=== PATIENT | male | born 1960 | race American Indian/Alaskan Native ===

== ENCOUNTER 2021-09-28 16:39 | Observation (INO) | payer BC ==
--- NOTE | 2021-09-28 16:51 | Consultation ---
History of Present Illness - Reason for Consult Consult date: 09/28/21 - History of Present Illness [facility] Consult Note # Demographics Consult Type: Acute Stroke Level 1 (0-4.5 hrs) Patient Location: Emergency Room First Name: darion Last Name: modesto Date of : 1960 Age: 61 Gender: Male Facility: Time of Initial Page (Eastern Time): 09/28/2021, 16:41 Time of Return Call (Eastern Time): 09/28/2021, 16:42 # HPI History: 61yo man who presents with confusion and was diaphoretic. Bystanders found him with LOC and unresponsive by his truck. He is improved, and has hypertension. he is asking the same repetitive questions . Last Known Normal: 1530 EST Associated Symptoms: confusion no headache # Scores Time of exam and NIHSS ( Time): 09/28/2021, 16:45 Level of Consciousness 1a: [0] = Alert; keenly responsive LOC Questions 1b: [1] = Answers one correctly LOC Commands 1c: [0] = Performs both tasks correctly Best Gaze 2: [0] = Normal Visual 3: [0] = No visual loss Facial Palsy 4: [0] = Normal symmetrical movements Motor Arm Left 5a: [0] = No drift Motor Arm Right 5b: [0] = No drift Motor Leg Left 6a: [0] = No drift Motor Leg Right 6b: [0] = No drift Limb Ataxia 7: [0] = Absent Sensory 8: [0] = Normal Best Language 9: [0] = No aphasia Dysarthria 10: [0] = Normal Extinction and Inattention 11: [0] = No abnormality NIHSS Total: 1 # Exam Vitals: vital signs reviewed SBP: 210 DBP: 110 Mental Status: recall 0/3 after 2 minutes # PMH-FH-SH Past Medical History: hypertension # Data Glucose: 62 # Assessment Impression: Altered Mental Status possibly 2/2 HTN vs transient global amnesia # Plan Thrombolytic/Intervention: NOT IV Thrombolysis or IA Intervention candidate Thrombolytic Exclusion (< 3 hour window): time of onset unclear Thrombolytic Exclusion: other (see below) likely not stroke Intraarterial Exclusion: clinically not consistent with stroke Target Blood Pressure: SBP < 180 SBP > 120 Imaging: (urgency: STAT): CT Angiogram Head and CT Angiogram Neck Imaging: (urgency: routine): MRI Brain without contrast Other: telemetry monitoring would not pursue stroke work-up if MRI is negative I have discussed my recommendations with the referring provider Medications and Allergies Allergies Allergy/AdvReac Type Severity Reaction Status Date / Time iodine Allergy Hives Verified 07/24/13 01:28 shellfish derived Allergy Hives Verified 07/24/13 01:28 Home Medications Medication Instructions Recorded Confirmed Last Taken Type Fluticasone/Qdsnzcwguo92/21Mcg 07/24/13 07/24/13 Unknown History [Advair HFA 45/21 mcg] lisinopriL [Zestril TAB] 10 mg PO QDAY #30 tablet 07/24/13 Unknown Rx EPINEPHrine [Epipen 2-Rafael] 0.3 mg IJ PRN PRN #1 ml 02/24/14 Unknown Rx predniSONE 10 mg PO QDAY #38 tab 02/24/14 Unknown Rx traMADoL [Ultram 50 MG tab] 50 mg PO Q4HR PRN #14 tablet 02/27/15 Unknown Rx
--- NOTE | 2021-09-28 17:00 | Emergency Department Report ---
ED Neuro Deficit HPI - General Chief Complaint: Neuro Symptoms/Deficit Stated Complaint: STROKE Time Seen by Provider: 09/28/21 16:48 Source: patient, EMS Mode of arrival: Stretcher Limitations: No Limitations - History of Present Illness Initial Comments: Patient is 61 years old male with history of hypertension and diabetes. Patient brought to the emergency room via EMS from a local [employer] parking lot after patient was found unresponsive. Patient found to have a blood pressure of 210/120. Patient is confused initially but he came around. Upon arrival to the ER patient is alert, oriented x3 in no acute distress. Stroke protocol initiated and patient moved to CT for stat CT brain without contrast. Telemetry neurologist immediately consulted and patient examined by Dr. Guthrie. - Related Data Home Medications: Home Medications Medication Instructions Recorded Confirmed Last Taken Fluticasone/Vkzpfoltzi75/21Mcg 1 inhalation PO QDAY 07/24/13 09/29/21 Unknown [Advair HFA 45/21 mcg] Previous Rx's Medication Instructions Recorded Last Taken Type EPINEPHrine [Epipen 2-Rafael] 0.3 mg IJ PRN PRN #1 ml 02/24/14 Unknown Rx traMADoL [Ultram 50 MG tab] 50 mg PO Q4HR PRN #14 tablet 02/27/15 Unknown Rx Montelukast [Singulair] 10 mg PO QHS #30 tablet 09/30/21 Unknown Rx Prednisone [predniSONE 5 mg (6-Day 5 mg PO .TAPER #1 pack 09/30/21 Unknown Rx Pack, 21 Tabs)] amLODIPine 5 mg PO DAILY #30 tab 09/30/21 Unknown Rx lisinopriL [Zestril TAB] 40 mg PO QDAY #30 tablet 09/30/21 Unknown Rx Allergies/Adverse Reactions: Allergies Allergy/AdvReac Type Severity Reaction Status Date / Time iodine Allergy Hives Verified 07/24/13 01:28 shellfish derived Allergy Hives Verified 07/24/13 01:28 ED Review of Systems ROS: Stated complaint: STROKE Other details as noted in HPI Comment: All other systems reviewed and negative Constitutional: denies: chills, fever Respiratory: denies: cough, shortness of breath, SOB with exertion, SOB at rest Cardiovascular: denies: chest pain, palpitations Gastrointestinal: denies: abdominal pain, nausea, vomiting Musculoskeletal: denies: back pain Neurological: denies: headache, weakness, numbness, paresthesias, confusion ED Past Medical Hx - Past Medical History Hx Hypertension: Yes Hx Kidney Stones: Yes Hx Asthma: Yes - Social History Smoking Status: Never Smoker Substance Use Type: None - Medications Home Medications: Home Medications Medication Instructions Recorded Confirmed Last Taken Type Fluticasone/Uhzdmmmsko45/21Mcg 1 inhalation PO QDAY 07/24/13 09/29/21 Unknown History [Advair HFA 45/21 mcg] EPINEPHrine [Epipen 2-Rafael] 0.3 mg IJ PRN PRN #1 ml 02/24/14 09/29/21 Unknown Rx traMADoL [Ultram 50 MG tab] 50 mg PO Q4HR PRN #14 tablet 02/27/15 09/29/21 Unknown Rx Montelukast [Singulair] 10 mg PO QHS #30 tablet 09/30/21 Unknown Rx Prednisone [predniSONE 5 mg (6-Day 5 mg PO .TAPER #1 pack 09/30/21 Unknown Rx Pack, 21 Tabs)] amLODIPine 5 mg PO DAILY #30 tab 09/30/21 Unknown Rx lisinopriL [Zestril TAB] 40 mg PO QDAY #30 tablet 09/30/21 Unknown Rx ED Neuro Physical Exam - General Limitations: No Limitations General appearance: alert, in no apparent distress Suspected Stroke: Yes - Head Head exam: Present: atraumatic, normocephalic, normal inspection - Eye Eye exam: Present: normal appearance - ENT ENT exam: Present: normal exam, normal orophraynx, mucous membranes moist - Neck Neck exam: Present: normal inspection, full ROM. Absent: tenderness, meningismus - Respiratory Respiratory exam: Present: normal lung sounds bilaterally - Cardiovascular Cardiovascular Exam: Present: regular rate, normal rhythm, normal heart sounds - GI/Abdominal GI/Abdominal exam: Present: soft, normal bowel sounds. Absent: distended, tenderness, guarding, rebound, rigid, organomegaly, mass, bruit, pulsatile mass, hernia - Extremities Exam Extremities exam: Present: normal inspection, full ROM, normal capillary refill. Absent: tenderness - Back Exam Back exam: Present: normal inspection, full ROM. Absent: CVA tenderness (R), CVA tenderness (L) - Neurological Exam Neurological exam: Present: alert, oriented X3, CN II-XII intact. Absent: motor sensory deficit - NIHSS Assessment Interval: Baseline 1a. Level of Consciousness: alert/keenly responsive 1b. LOC Questions: answers both correctly 1c. LOC Commands: performs tasks correctly 2. Best Gaze: normal 3. Visual: no visual loss 4. Facial Palsy: normal symmetrical movement 5b. Motor Arm Right: no drift 5a. Motor Arm Left: no drift 6a. Motor Leg Left: no drift 6b. Motor Leg Right: no drift 7. Limb Ataxia: absent 8. Sensory: normal 9. Best Language: no aphasia 10. Dysarthria: normal 11. Extinction/Inattention: no abnormality Total Score: 0 Stroke Severity: No Stroke Symptoms - Psychiatric Psychiatric exam: Present: normal mood - Skin Skin exam: Present: warm, intact, normal color ED Course Vital Signs 09/28/21 09/28/21 09/28/21 17:08 17:14 17:15 Temperature Pulse Rate 103 H Respiratory 18 Rate Blood Pressure 151/102 159/108 Blood Pressure [Right] O2 Sat by Pulse 99 97 Oximetry 09/28/21 09/28/21 09/28/21 17:17 17:20 18:01 Temperature 98.0 F Pulse Rate 99 H 99 H 89 Respiratory 18 20 Rate Blood Pressure 152/102 Blood Pressure 159/108 [Right] O2 Sat by Pulse 98 99 Oximetry 09/28/21 09/28/21 09/28/21 19:01 20:01 21:01 Temperature Pulse Rate 76 Respiratory 15 Rate Blood Pressure 157/105 151/105 144/96 Blood Pressure [Right] O2 Sat by Pulse 99 98 100 Oximetry 09/28/21 09/28/21 09/28/21 22:01 23:01 23:07 Temperature Pulse Rate 90 Respiratory 13 Rate Blood Pressure 144/100 154/104 154/104 Blood Pressure [Right] O2 Sat by Pulse 99 96 95 Oximetry 09/28/21 09/29/21 23:25 00:00 Temperature Pulse Rate 84 Respiratory Rate Blood Pressure 154/104 137/91 Blood Pressure [Right] O2 Sat by Pulse 95 Oximetry - Lab Data Result diagrams: 09/28/21 17:00 09/29/21 04:26 Lab Results 09/28/21 09/28/21 09/28/21 Range/Units 14:20 17:00 17:00 WBC 5.6 (4.5-11.0) K/mm3 RBC 4.53 (3.65-5.03) M/mm3 Hgb 14.4 (11.8-15.2) gm/dl Hct 41.8 (35.5-45.6) % MCV 92 (84-94) fl MCH 32 (28-32) pg MCHC 35 H (32-34) % RDW 15.2 (13.2-15.2) % Plt Count 279 (140-440) K/mm3 Lymph % (Auto) 38.6 H (13.4-35.0) % [place] % (Auto) 11.8 H (0.0-7.3) % Eos % (Auto) 3.0 (0.0-4.3) % Baso % (Auto) 0.8 (0.0-1.8) % Lymph # (Auto) 2.2 (1.2-5.4) K/mm3 [place] # (Auto) 0.7 (0.0-0.8) K/mm3 Eos # (Auto) 0.2 (0.0-0.4) K/mm3 Baso # (Auto) 0.0 (0.0-0.1) K/mm3 Seg Neutrophils % 45.8 (40.0-70.0) % Seg Neutrophils # 2.6 (1.8-7.7) K/mm3 PT 12.9 (12.2-14.9) Sec. INR 0.88 (0.87-1.13) APTT 23.7 L (24.2-36.6) Sec. Thrombin Time 20.5 H (15.1-19.6) Sec. Sodium (137-145) mmol/L Potassium (3.6-5.0) mmol/L Chloride (98-107) mmol/L Carbon Dioxide (22-30) mmol/L Anion Gap mmol/L BUN (9-20) mg/dL Creatinine (0.8-1.3) mg/dL Estimated GFR ml/min BUN/Creatinine Ratio % Glucose (75-100) mg/dL Calcium (8.4-10.2) mg/dL Total Creatine Kinase (55-170) units/L CK-MB (CK-2) (0.0-4.0) ng/mL CK-MB (CK-2) Rel Index (0-4) Troponin T (0.00-0.029) ng/mL Urine Opiates Screen Negative Urine Methadone Screen Negative Ur Barbiturates Screen Negative Ur Phencyclidine Scrn Negative Ur Amphetamines Screen Negative U Benzodiazepines Scrn Negative Urine Cocaine Screen Negative U Marijuana (THC) Screen Positive Drugs of Abuse Note Disclamer 09/28/21 Range/Units 17:00 WBC (4.5-11.0) K/mm3 RBC (3.65-5.03) M/mm3 Hgb (11.8-15.2) gm/dl Hct (35.5-45.6) % MCV (84-94) fl MCH (28-32) pg MCHC (32-34) % RDW (13.2-15.2) % Plt Count (140-440) K/mm3 Lymph % (Auto) (13.4-35.0) % [place] % (Auto) (0.0-7.3) % Eos % (Auto) (0.0-4.3) % Baso % (Auto) (0.0-1.8) % Lymph # (Auto) (1.2-5.4) K/mm3 [place] # (Auto) (0.0-0.8) K/mm3 Eos # (Auto) (0.0-0.4) K/mm3 Baso # (Auto) (0.0-0.1) K/mm3 Seg Neutrophils % (40.0-70.0) % Seg Neutrophils # (1.8-7.7) K/mm3 PT (12.2-14.9) Sec. INR (0.87-1.13) APTT (24.2-36.6) Sec. Thrombin Time (15.1-19.6) Sec. Sodium 140 (137-145) mmol/L Potassium 3.5 L (3.6-5.0) mmol/L Chloride 103.1 (98-107) mmol/L Carbon Dioxide 20 L (22-30) mmol/L Anion Gap 20 mmol/L BUN 23 H (9-20) mg/dL Creatinine 1.1 (0.8-1.3) mg/dL Estimated GFR > 60 ml/min BUN/Creatinine Ratio 21 % Glucose 107 H (75-100) mg/dL Calcium 9.0 (8.4-10.2) mg/dL Total Creatine Kinase 453 H (55-170) units/L CK-MB (CK-2) 6.2 H (0.0-4.0) ng/mL CK-MB (CK-2) Rel Index 1.3 (0-4) Troponin T < 0.010 (0.00-0.029) ng/mL Urine Opiates Screen Urine Methadone Screen Ur Barbiturates Screen Ur Phencyclidine Scrn Ur Amphetamines Screen U Benzodiazepines Scrn Urine Cocaine Screen U Marijuana (THC) Screen Drugs of Abuse Note - EKG Data -: EKG Interpreted by Me EKG shows normal: sinus rhythm Rate: normal Interpretation: no acute changes - Radiology Data Radiology results: report reviewed - Medical Decision Making Patient is 61 years old male with history of hypertension and diabetes. Patient brought to the emergency room via EMS from a local [employer] parking lot after patient was found unresponsive. Patient found to have a blood pressure of 210/120. Patient is confused initially but he came around. Upon arrival to the ER patient is alert, oriented x3 in no acute distress. Stroke protocol initiated and patient moved to CT for stat CT brain without contrast. Telemetry neurologist immediately consulted and patient examined by Dr. Guthrie. CT brain is negative for acute finding. Labs reviewed and is unremarkable. CTA neck and brain has not been done because patient has severe allergy to iodine contrast. Patient remained stable in the ER. He is currently alert, oriented x3 in no acute distress. I discussed the patient with Dr. Rosario, he agreed to admit the patient to medical service for further management. Critical Care Time: Yes Critical care time in (mins) excluding proc time.: 35 Critical care attestation.: If time is entered above; I have spent that time in minutes in the direct care of this critically ill patient, excluding procedure time. ED Disposition Clinical Impression: TIA (transient ischemic attack), Hypertensive encephalopathy Disposition: ADMITTED INPATIENT Is pt being admited?: Yes Condition: Stable
[2021-09-28 17:09] LABS: Basophils % (Auto) 0.8 % (0.0-1.8); Eosinophils # (Auto) 0.2 K/mm3 (0.0-0.4); Hematocrit 41.8 % (35.5-45.6); Hemoglobin 14.4 gm/dl (11.8-15.2); Lymphocytes # (Auto) 2.2 K/mm3 (1.2-5.4); Lymphocytes % (Auto) 38.6 % (13.4-35.0); Mean Corpuscular HGB Conc 35 % (32-34); Mean Corpuscular Volume 92 fl (84-94); Monocytes # (Auto) 0.7 K/mm3 (0.0-0.8); Monocytes % (Auto) 11.8 % (0.0-7.3); Platelet Count 279 K/mm3 (140-440); Red Blood Count 4.53 M/mm3 (3.65-5.03); Red Cell Distribution Width 15.2 % (13.2-15.2)
--- NOTE | 2021-09-28 17:10 | Cat Scan Report ---
CT head/brain wo con INDICATION: CODE STROKE CALL [phone] Stroke symptoms. TECHNIQUE: Routine CT head. All CT scans at this location are performed using CT dose reduction for A MARYLU by means of automated exposure control. COMPARISON: None. FINDINGS: Intracranial: [place]-white matter differentiation is maintained. No intracranial hemorrhage. No extra a xial collection. No hydrocephalus. No herniation. Sinuses: Paranasal sinuses and mastoid air cells are essentially clear. Orbits: Globes are intact. Calvarium: No acute fracture. IMPRESSION: 1. No acute intracranial abnormality. Informed Dr Mora at 4:06 Signer Name: Maxim Brewer MD Signed: 09/28/2021 5:06 PM Workstation Name: [id number]
[2021-09-28 17:23] LABS: INR 0.88 (0.87-1.13)
[2021-09-28 17:24] LABS: Partial Thromboplastin Time 23.7 Sec. (24.2-36.6); Thrombin Time 20.5 Sec. (15.1-19.6)
[2021-09-28 17:27] LABS: Creatine Kinase MB 6.2 ng/mL (0.0-4.0)
[2021-09-28 17:28] LABS: BUN/Creatinine Ratio 21; Blood Urea Nitrogen 23 mg/dL (9-20); Hemolysis Index 6
[2021-09-28] MEDS ORDERED: ONDANSETRON 4 MG/2 ML INJ IV PRN (20:48)
[2021-09-28] MEDS ORDERED: oxyCODONE /ACETAMINOPHEN 5-325MG TAB PO PRN (20:48)
[2021-09-28] MEDS ORDERED: ACETAMINOPHEN 325 MG TAB PO PRN (20:48)
--- NOTE | 2021-09-28 20:55 | History and Physical Report ---
History of Present Illness Date of examination: 09/28/21 Date of admission: 09/28/2021 Chief complaint: Found unresponsive at a local [facility] History of present illness: 61-year-old black male with history of hypertension and diabetes brought in with emergency medical services-EMS from the nearby [facility] parking lot after the patient was found unresponsive. His initial blood pressure was 210/120. Patient was confused initially but became around. Upon arrival in the ER patient is alert and oriented x3 and in no acute distress. Stroke protocol was initiated. Patient is noncompliant. Not taking his medications. Patient also has a history of asthma/COPD. No fever or chills. Vaccination status was not asked during my history taking. - Past Medical History --Hypertension: Yes --Kidney Stones: Yes --Asthma: Yes - Past surgical history --left total knee replacement - Social History --Smoking Status: Never Smoker --Substance Use Type: None - Family history --Htn Review of Systems ROS: Unresponsive at nearby [facility] Constitutional no weight loss or weight gain no fever or chills HEENT no sore throat no post nasal drip no diplopia Neck no neck stiffness no lymph gland enlargement Chest and lungs no shortness of breath cough or wheezing CVS no chest pain no diaphoresis no palpitations GI no nausea no vomiting no diarrhea Genitourinary system no dysuria no flank pain Musculoskeletal system no muscle pains no joint pains [employer] OFF[employer] unresponsive at the nearby [facility] became fully alert while in the emergency room. Skin no rash no itching Psychiatric no depression no homicidal or suicidal tendencies Hematologic no lymphedema or bruising Endocrine no polydipsia no polyuria no cold intolerance no heat intolerance Medications and Allergies Allergies Allergy/AdvReac Type Severity Reaction Status Date / Time iodine Allergy Hives Verified 07/24/13 01:28 shellfish derived Allergy Hives Verified 07/24/13 01:28 Home Medications Medication Instructions Recorded Confirmed Last Taken Type Fluticasone/Izvhrkxrnr42/21Mcg 07/24/13 07/24/13 Unknown History [Advair HFA 45/21 mcg] lisinopriL [Zestril TAB] 10 mg PO QDAY #30 tablet 07/24/13 Unknown Rx EPINEPHrine [Epipen 2-Rafael] 0.3 mg IJ PRN PRN #1 ml 02/24/14 Unknown Rx predniSONE 10 mg PO QDAY #38 tab 02/24/14 Unknown Rx traMADoL [Ultram 50 MG tab] 50 mg PO Q4HR PRN #14 tablet 02/27/15 Unknown Rx Exam - Constitutional Vitals: Temp Pulse Resp BP Pulse Ox 98.0 F 99 H 18 159/108 98 09/28/21 17:17 09/28/21 17:20 09/28/21 17:17 09/28/21 17:17 09/28/21 17:17 General appearance: Present: no acute distress, well-nourished - EENT Eyes: Present: PERRL ENT: hearing intact, clear oral mucosa - Neck Neck: Present: supple, normal ROM - Respiratory Respiratory effort: normal Respiratory: bilateral: CTA - Cardiovascular Heart rate: 78 Rhythm: regular Heart Sounds: Present: S1 & S2. Absent: rub, click - Extremities Extremities: no ischemia, pulses intact, pulses symmetrical, No edema Peripheral Pulses: within normal limits - Abdominal General gastrointestinal: Present: soft, non-tender, non-distended, normal bowel sounds Male genitourinary: Present: normal - Rectal Rectal Exam: deferred - Integumentary Integumentary: Present: clear, warm, dry - Musculoskeletal Musculoskeletal: gait normal, strength equal bilaterally - Psychiatric Psychiatric: appropriate mood/affect, intact judgment & insight - Neurologic Neurologic: CNII-XII intact, moves all extremities - Allied Health Allied health notes reviewed: nursing, case management HEART Score - HEART Score History: Moderately suspicious Risk factors: 1-2 risk factors Troponin: Troponin T < 0.010 ng/mL (0.00-0.029) 09/28/21 17:00 Troponin: < normal limit - Critical Actions Critical Actions: 0-3 pts:0.9-1.7%risk of adverse cardiac event.Candidate for discharge Results - Labs CBC & Chem 7: 09/28/21 17:00 09/28/21 17:00 Labs: Laboratory Last Values WBC 5.6 K/mm3 (4.5-11.0) 09/28/21 17:00 RBC 4.53 M/mm3 (3.65-5.03) 09/28/21 17:00 Hgb 14.4 gm/dl (11.8-15.2) 09/28/21 17:00 Hct 41.8 % (35.5-45.6) 09/28/21 17:00 MCV 92 fl (84-94) 09/28/21 17:00 MCH 32 pg (28-32) 09/28/21 17:00 MCHC 35 % (32-34) H 09/28/21 17:00 RDW 15.2 % (13.2-15.2) 09/28/21 17:00 Plt Count 279 K/mm3 (140-440) 09/28/21 17:00 Lymph % (Auto) 38.6 % (13.4-35.0) H 09/28/21 17:00 [place] % (Auto) 11.8 % (0.0-7.3) H 09/28/21 17:00 Eos % (Auto) 3.0 % (0.0-4.3) 09/28/21 17:00 Baso % (Auto) 0.8 % (0.0-1.8) 09/28/21 17:00 Lymph # (Auto) 2.2 K/mm3 (1.2-5.4) 09/28/21 17:00 [place] # (Auto) 0.7 K/mm3 (0.0-0.8) 09/28/21 17:00 Eos # (Auto) 0.2 K/mm3 (0.0-0.4) 09/28/21 17:00 Baso # (Auto) 0.0 K/mm3 (0.0-0.1) 09/28/21 17:00 Seg Neutrophils % 45.8 % (40.0-70.0) 09/28/21 17:00 Seg Neutrophils # 2.6 K/mm3 (1.8-7.7) 09/28/21 17:00 PT 12.9 Sec. (12.2-14.9) 09/28/21 17:00 INR 0.88 (0.87-1.13) 09/28/21 17:00 APTT 23.7 Sec. (24.2-36.6) L 09/28/21 17:00 Thrombin Time 20.5 Sec. (15.1-19.6) H 09/28/21 17:00 Sodium 140 mmol/L (137-145) 09/28/21 17:00 Potassium 3.5 mmol/L (3.6-5.0) L 09/28/21 17:00 Chloride 103.1 mmol/L (98-107) 09/28/21 17:00 Carbon Dioxide 20 mmol/L (22-30) L 09/28/21 17:00 Anion Gap 20 mmol/L 09/28/21 17:00 BUN 23 mg/dL (9-20) H 09/28/21 17:00 Creatinine 1.1 mg/dL (0.8-1.3) 09/28/21 17:00 Estimated GFR > 60 ml/min 09/28/21 17:00 BUN/Creatinine Ratio 21 % 09/28/21 17:00 Glucose 107 mg/dL (75-100) H 09/28/21 17:00 Calcium 9.0 mg/dL (8.4-10.2) 09/28/21 17:00 Total Creatine Kinase 453 units/L (55-170) H 09/28/21 17:00 CK-MB (CK-2) 6.2 ng/mL (0.0-4.0) H 09/28/21 17:00 CK-MB (CK-2) Rel Index 1.3 (0-4) 09/28/21 17:00 Troponin T < 0.010 ng/mL (0.00-0.029) 09/28/21 17:00 Short CBC 09/28/21 Range/Units 17:00 WBC 5.6 (4.5-11.0) K/mm3 Hgb 14.4 (11.8-15.2) gm/dl Hct 41.8 (35.5-45.6) % Plt Count 279 (140-440) K/mm3 BMP 09/28/21 17:00 Sodium 140 Potassium 3.5 L Chloride 103.1 Carbon Dioxide 20 L BUN 23 H Creatinine 1.1 Glucose 107 H Calcium 9.0 Cardiac Enzymes 09/28/21 Range/Units 17:00 Total Creatine Kinase 453 H (55-170) units/L CK-MB (CK-2) 6.2 H (0.0-4.0) ng/mL Troponin T < 0.010 (0.00-0.029) ng/mL - Imaging and Cardiology EKG: report reviewed (Left-ventricular hypertrophy by voltage criteria, sinus rhythm) Imaging and Cardiology: Head CT No acute intracranial abnormality Assessment and Plan Advance Directives: Yes (Full code) VTE prophylaxis?: Chemical Plan of care discussed with patient/family: Yes - Patient Problems (1) Hypertensive encephalopathy Current Visit: Yes Status: Acute Plan to address problem: Patient initiated on valsartan and Coreg IV hydralazine 10 mg every 3 as needed Compliance was counseled (2) Syncope and collapse Current Visit: Yes Status: Acute Plan to address problem: Syncope work-up Echocardiogram and carotid duplex scan (3) Hypokalemia Current Visit: Yes Status: Acute Plan to address problem: Supplemented (4) T2DM (type 2 diabetes mellitus) Current Visit: Yes Status: Chronic Qualifiers: Diabetes mellitus terminal gauger insulin use: unspecified halfway insulin use status Plan to address problem: By history Accu-Cheks Coverage Check hemoglobin A1c (5) Asthma Current Visit: Yes Status: Inactive Plan to address problem: Albuterol MDI 2 puffs 3 times daily as needed (6) DVT prophylaxis Current Visit: No Status: Acute Plan to address problem: On anticoagulation GI prophylaxis (7) Advance care planning Current Visit: Yes Status: Acute Plan to address problem: Disease education conducted, care plan discussed, diagnosis discussed, prognosis discussed. Patient is full code. Patient acknowledges understanding and agreement with care plan. +30 minutes.
[2021-09-28] MEDS: VALSARTAN 160MG TAB PO SCH (23:25)
[2021-09-28] MEDS: HEPARIN 5,000 UNIT/1 ML VIAL SUB-Q SCH (23:26)
[2021-09-29 05:29] LABS: Alanine Aminotransferase 33 units/L (7-56); BUN/Creatinine Ratio 16; Blood Urea Nitrogen 16 mg/dL (9-20); Calcium 8.8 mg/dL (8.4-10.2); Hemolysis Index 2
[2021-09-29] MEDS ORDERED: POTASSIUM CHLORIDE ER 20 MEQ TAB PO ONE ×2 (06:11→14:00)
[2021-09-29] MEDS ORDERED: hydrALAZINE 20 MG/1 ML INJ IV PRN (06:17)
[2021-09-29] MEDS: INSULIN LISPRO 100 UNIT/ML SUB-Q SCH ×4 (08:49→22:34)
--- NOTE | 2021-09-29 09:01 | Consultation ---
History of Present Illness Consult date: 09/29/21 Reason for Consult: found unresponsive,hypertensive emergency History of present illness: Found unresponsive at a local [facility] History of present illness: 61-year-old black male with history of hypertension and diabetes brought in with emergency medical services-EMS from the nearby [facility] parking lot after the patient was found unresponsive. His initial blood pressure was 210/120. Patient was confused initially but became around. Upon arrival in the ER patient is alert and oriented x3 and in no acute distress. Stroke protocol was initiated. Patient is noncompliant. Not taking his medications. Patient also has a history of asthma/COPD. No fever or chills. Vaccination status was not asked during my history taking. -In ER CT brain is unremarkable MRI brain awaiting official report pt. denied seizure hx or syncopy he is taking ASA 81 mg daily - Past Medical History --Hypertension: Yes --Kidney Stones: Yes --Asthma: Yes - Past surgical history --left total knee replacement - Social History --Smoking Status: Never Smoker --Substance Use Type: None - Family history --Htn Review of Systems ROS: Unresponsive at nearby [facility] Constitutional no weight loss or weight gain no fever or chills HEENT no sore throat no post nasal drip no diplopia Neck no neck stiffness no lymph gland enlargement Chest and lungs no shortness of breath cough or wheezing CVS no chest pain no diaphoresis no palpitations GI no nausea no vomiting no diarrhea Genitourinary system no dysuria no flank pain Musculoskeletal system no muscle pains no joint 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 Skin no rash no itching Psychiatric no depression no homicidal or suicidal tendencies Hematologic no lymphedema or bruising Endocrine no polydipsia no polyuria no cold intolerance no heat intolerance Medications and Allergies Allergies Allergy/AdvReac Type Severity Reaction Status Date / Time iodine Allergy Hives Verified 07/24/13 01:28 shellfish derived Allergy Hives Verified 07/24/13 01:28 Home Medications Medication Instructions Recorded Confirmed Last Taken Type Fluticasone/Rngtppxyoh74/21Mcg 07/24/13 07/24/13 Unknown History [Advair HFA 45/21 mcg] lisinopriL [Zestril TAB] 10 mg PO QDAY #30 tablet 07/24/13 Unknown Rx EPINEPHrine [Epipen 2-Rafael] 0.3 mg IJ PRN PRN #1 ml 02/24/14 Unknown Rx predniSONE 10 mg PO QDAY #38 tab 02/24/14 Unknown Rx traMADoL [Ultram 50 MG tab] 50 mg PO Q4HR PRN #14 tablet 02/27/15 Unknown Rx Exam Medications and Allergies Allergies Allergy/AdvReac Type Severity Reaction Status Date / Time iodine Allergy Hives Verified 07/24/13 01:28 shellfish derived Allergy Hives Verified 07/24/13 01:28 Home Medications Medication Instructions Recorded Confirmed Last Taken Type Fluticasone/Tgrcumxvao63/21Mcg 07/24/13 07/24/13 Unknown History [Advair HFA 45/21 mcg] lisinopriL [Zestril TAB] 10 mg PO QDAY #30 tablet 07/24/13 Unknown Rx EPINEPHrine [Epipen 2-Rafael] 0.3 mg IJ PRN PRN #1 ml 02/24/14 Unknown Rx predniSONE 10 mg PO QDAY #38 tab 02/24/14 Unknown Rx traMADoL [Ultram 50 MG tab] 50 mg PO Q4HR PRN #14 tablet 02/27/15 Unknown Rx Active Meds: Active Medications Acetaminophen (Acetaminophen 325 Mg Tab) 650 mg PO Q4H PRN PRN Reason: Pain MILD(1-3)/Fever >100.5/MEEK Heparin Sodium (Porcine) (Heparin 5,000 Unit/1 Ml Vial) 5,000 unit SUB-Q Q12HR [facility] Last Admin: 09/28/21 23:26 Dose: 5,000 unit Hydralazine HCl (Hydralazine 20 Mg/1 Ml Inj) 10 mg IV Q3H PRN PRN Reason: Blood Pressure Insulin Human Lispro (Insulin Lispro 100 Unit/Ml) 0 unit SUB-Q [facility]; Protocol Last Admin: 09/29/21 08:49 Dose: Not Given Ondansetron HCl (Ondansetron 4 Mg/2 Ml Inj) 4 mg IV Q8H PRN PRN Reason: Nausea And Vomiting Oxycodone/Acetaminophen (Oxycodone /Acetaminophen 5-325mg Tab) 1 tab PO Q6H PRN PRN Reason: Pain, Moderate (4-6) Last Admin: 09/28/21 23:25 Dose: 1 tab Sodium Chloride (Sodium Chloride 0.9% 10 Ml Flush Syringe) 10 ml IV BID [facility] Last Admin: 09/28/21 23:26 Dose: 10 ml Sodium Chloride (Sodium Chloride 0.9% 10 Ml Flush Syringe) 10 ml IV PRN PRN PRN Reason: LINE FLUSH Valsartan (Valsartan 160mg Tab) 160 mg PO Q12HR [facility] Last Admin: 09/28/21 23:25 Dose: 160 mg Physical Examination - Vital Signs Vital Signs: Vital Signs BP 151/102 09/28/21 17:08 - Constitutional General appearance: comfortable - EENT EENT: Present: PERRL, mucous membranes moist, conjuctiva injected - Respiratory Respiratory: Present: chest non-tender, lungs clear - Cardiovascular Cardiovascular: Present: regular rate, normal S1, normal S2 Extremities: Present: no peripheral edema bilatateraly, no clubbing, cyanosis - Gastrointestinal Gastrointestinal: Present: normoactive bowel sounds - Integumentary Integumentary: Present: normal - Neurologic Cranial nerve examination: PERRL, EOMI, intact Speech examination: intact Sensorimotor examination: intact Detailed motor examination: grossly full strength in - Level of Consciousness 1a. Level of Consciousness: alert/keenly responsive - LOC Questions 1b. LOC Questions: answers both correctly - LOC Command 1c. LOC Commands: performs tasks correctly - Best Gaze 2. Best Gaze: normal - Visual 3. Visual: no visual loss - Facial Palsy 4. Facial Palsy: normal symmetrical movement - Motor Arm 5a. Motor Arm Left: no drift 5b. Motor Arm Right: no drift - Motor Leg 6a. Motor Leg Left: no drift 6b. Motor Leg Right: no drift - Limb Ataxia 7. Limb Ataxia: absent - Sensory 8. Sensory: normal - Best Language 9. Best Language: no aphasia - Dysarthria 10. Dysarthria: normal - Extinction and Inattention 11. Extinction/Inattention: no abnormality - Scoring Total Score: 0 Stroke Severity: No Stroke Symptoms Results - Laboratory Findings CBC and BMP: 09/28/21 17:00 09/29/21 04:26 Abnormal Lab Findings: Abnormal Labs 09/28/21 09/28/21 09/28/21 17:00 17:00 17:00 MCHC 35 H Lymph % (Auto) 38.6 H [place] % (Auto) 11.8 H APTT 23.7 L Thrombin Time 20.5 H Potassium 3.5 L Carbon Dioxide 20 L BUN 23 H Glucose 107 H Hemoglobin A1c Total Creatine Kinase 453 H CK-MB (CK-2) 6.2 H 09/29/21 09/29/21 04:26 07:41 MCHC Lymph % (Auto) [place] % (Auto) APTT Thrombin Time Potassium 3.4 L Carbon Dioxide BUN Glucose Hemoglobin A1c 7.9 H Total Creatine Kinase CK-MB (CK-2) Assessment and Plan Assessment and Plan 61-year-old black male with history of hypertension and diabetes brought in with emergency medical services-EMS from the nearby [employer] parking lot after the patient was found unresponsive. His initial blood pressure was 210/120. Patient was confused initially but became around. Upon arrival in the ER patient is alert and oriented x3 and in no acute distress. Stroke protocol was initiated. Patient is noncompliant. Not taking his medications. Patient also has a history of asthma/COPD. No fever or chills. Vaccination status was not asked during my history taking. - Patient Problems # Hypertensive encephalopathy - Initial BP210/120 -NIh#0 -Hx of poor compliance with medications -CT brain is unremarkable -MRI and MRA pending -US carotid is pending -EEG is pending -Pt/ST evaluate -started on ASA and lipitor -LDL is pending -echo is with LVH with EF#50-55% # Syncope and collapse -US and echo are pending -MRI brain is pending -cardiac monitering -EEG # Hypokalemia -Supplemented # T2DM (type 2 diabetes mellitus) -By history -Accu-Cheks -Check hemoglobin A1c # Asthma -Albuterol MDI 2 puffs 3 times daily as needed # DVT prophylaxis -On anticoagulation GI prophylaxis plan 1-review mri,mra 2-us carotid 3-eeg 4- cardiac monitering 5-seizure precaution/ no driving 6- ASA and Lipitor
--- NOTE | 2021-09-29 10:02 | Electrocardiograph Report ---
[facility] Test Date: 2021-09-28 Test Time: 17:17:10 Pat Name: GLORIA MENDOZA Department: Room: A454 1 Gender: M Guest Services Officer: CONRAD : 1960 Requested By: NAM CLARKE Order Number: [id number] Reading MD: Mark Meehan Measurements Intervals [place] Rate: 97 P: 29 CO: 157 QRS: -16 QRSD: 87 T: 2 QT: 348 QTc: 442 Interpretive Statements Sinus rhythm Left ventricular hypertrophy No previous ECG available for comparison Electronically Signed On 09-29-2021 10:01:59 EST by Mark Meehan
[2021-09-29] MEDS: HEPARIN 5,000 UNIT/1 ML VIAL SUB-Q SCH ×2 (13:51→22:59)
[2021-09-29] MEDS: VALSARTAN 160MG TAB PO SCH ×2 (13:51→23:00)
[2021-09-29 15:10] LABS: Bilirubin,Urine NEG (Negative); Blood,Urine NEG (Negative); Color,Urine Yellow (Yellow); Mucus,Urine FEW /HPF; Protein,Urine <15 mg/dL mg/dL (Negative); RBC,Urine < 1.0 /HPF (0.0-6.0); Urobilinogen,Urine < 2.0 mg/dL (<2.0)
[2021-09-29 15:15] LABS: Amphetamine Screen,Urine Negative; Benzodiazepines Screen,Urine Negative; Cocaine Screen,Urine Negative; Methadone Screen,Urine Negative; Opiate Screen,Urine Negative
[2021-09-29 16:01] LABS: Cannabinoid Screen,Urine Positive
--- NOTE | 2021-09-29 19:12 | Progress Note ---
Assessment and Plan Assessment and plan: 61-year-old black male with history of hypertension and diabetes brought in with emergency medical services-EMS from the nearby [employer] parking lot after the patient was found unresponsive. His initial blood pressure was 210/120. Patient was confused initially but became around. Upon arrival in the ER patient is alert and oriented x3 and in no acute distress. Stroke protocol was initiated. Patient is noncompliant. Not taking his medications. Patient also has a history of asthma/COPD. No fever or chills. Vaccination status was not asked during my history taking. 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 Patient is full code. Patient acknowledges understanding and agreement with care plan. +30 minutes. Hospitalist Physical - Constitutional Vitals: Temp Pulse Resp BP Pulse Ox 97.8 F 61 18 153/98 98 09/29/21 15:21 09/29/21 14:00 09/29/21 15:21 09/29/21 15:21 09/29/21 13:45 General appearance: Present: no acute distress, well-nourished HEART Score - HEART Score Risk factors: 1-2 risk factors Troponin: Troponin T < 0.010 ng/mL (0.00-0.029) 09/28/21 17:00 Troponin: < normal limit - Critical Actions Critical Actions: 0-3 pts:0.9-1.7%risk of adverse cardiac event.Candidate for discharge Results - Labs CBC & Chem 7: 09/28/21 17:00 09/29/21 04:26 Labs: Laboratory Last Values WBC 5.6 K/mm3 (4.5-11.0) 09/28/21 17:00 RBC 4.53 M/mm3 (3.65-5.03) 09/28/21 17:00 Hgb 14.4 gm/dl (11.8-15.2) 09/28/21 17:00 Hct 41.8 % (35.5-45.6) 09/28/21 17:00 MCV 92 fl (84-94) 09/28/21 17:00 MCH 32 pg (28-32) 09/28/21 17:00 MCHC 35 % (32-34) H 09/28/21 17:00 RDW 15.2 % (13.2-15.2) 09/28/21 17:00 Plt Count 279 K/mm3 (140-440) 09/28/21 17:00 Lymph % (Auto) 38.6 % (13.4-35.0) H 09/28/21 17:00 [place] % (Auto) 11.8 % (0.0-7.3) H 09/28/21 17:00 Eos % (Auto) 3.0 % (0.0-4.3) 09/28/21 17:00 Baso % (Auto) 0.8 % (0.0-1.8) 09/28/21 17:00 Lymph # (Auto) 2.2 K/mm3 (1.2-5.4) 09/28/21 17:00 Carter # (Auto) 0.7 K/mm3 (0.0-0.8) 09/28/21 17:00 Eos # (Auto) 0.2 K/mm3 (0.0-0.4) 09/28/21 17:00 Baso # (Auto) 0.0 K/mm3 (0.0-0.1) 09/28/21 17:00 Seg Neutrophils % 45.8 % (40.0-70.0) 09/28/21 17:00 Seg Neutrophils # 2.6 K/mm3 (1.8-7.7) 09/28/21 17:00 PT 12.9 Sec. (12.2-14.9) 09/28/21 17:00 INR 0.88 (0.87-1.13) 09/28/21 17:00 APTT 23.7 Sec. (24.2-36.6) L 09/28/21 17:00 Thrombin Time 20.5 Sec. (15.1-19.6) H 09/28/21 17:00 Sodium 141 mmol/L (137-145) 09/29/21 04:26 Potassium 3.4 mmol/L (3.6-5.0) L 09/29/21 04:26 Chloride 104.8 mmol/L (98-107) 09/29/21 04:26 Carbon Dioxide 22 mmol/L (22-30) 09/29/21 04:26 Anion Gap 18 mmol/L 09/29/21 04:26 BUN 16 mg/dL (9-20) 09/29/21 04:26 Creatinine 1.0 mg/dL (0.8-1.3) 09/29/21 04:26 Estimated GFR > 60 ml/min 09/29/21 04:26 BUN/Creatinine Ratio 16 % 09/29/21 04:26 Glucose 87 mg/dL (75-100) 09/29/21 04:26 POC Glucose 129 mg/dL (70-105) H 09/29/21 15:20 Hemoglobin A1c 7.9 % (4-6) H 09/29/21 07:41 Calcium 8.8 mg/dL (8.4-10.2) 09/29/21 04:26 Total Bilirubin 0.40 mg/dL (0.1-1.2) 09/29/21 04:26 AST 38 units/L (5-40) 09/29/21 04:26 ALT 33 units/L (7-56) 09/29/21 04:26 Alkaline Phosphatase 94 units/L (35-129) 09/29/21 04:26 Total Creatine Kinase 453 units/L (55-170) H 09/28/21 17:00 CK-MB (CK-2) 6.2 ng/mL (0.0-4.0) H 09/28/21 17:00 CK-MB (CK-2) Rel Index 1.3 (0-4) 09/28/21 17:00 Troponin T < 0.010 ng/mL (0.00-0.029) 09/28/21 17:00 Total Protein 6.8 g/dL (6.3-8.2) 09/29/21 04:26 Albumin 4.0 g/dL (3.9-5) 09/29/21 04:26 Albumin/Globulin Ratio 1.4 % 09/29/21 04:26 Urine Color Yellow (Yellow) 09/29/21 14:20 Urine Turbidity Clear (Clear) 09/29/21 14:20 Urine pH 6.0 (5.0-7.0) 09/29/21 14:20 Ur Specific [place] 1.010 (1.003-1.030) 09/29/21 14:20 Urine Protein <15 mg/dl mg/dL (Negative) 09/29/21 14:20 Urine Glucose (UA) Neg mg/dL (Negative) 09/29/21 14:20 Urine Ketones Neg mg/dL (Negative) 09/29/21 14:20 Urine Blood Neg (Negative) 09/29/21 14:20 Urine Nitrite Neg (Negative) 09/29/21 14:20 Urine Bilirubin Neg (Negative) 09/29/21 14:20 Urine Urobilinogen < 2.0 mg/dL (<2.0) 09/29/21 14:20 Ur Leukocyte Esterase Neg (Negative) 09/29/21 14:20 Urine WBC (Auto) 1.0 /HPF (0.0-6.0) 09/29/21 14:20 Urine RBC (Auto) < 1.0 /HPF (0.0-6.0) 09/29/21 14:20 Urine Mucus Few /HPF 09/29/21 14:20 Urine Opiates Screen Negative 09/28/21 14:20 Urine Methadone Screen Negative 09/28/21 14:20 Ur Barbiturates Screen Negative 09/28/21 14:20 Ur Phencyclidine Scrn Negative 09/28/21 14:20 Ur Amphetamines Screen Negative 09/28/21 14:20 U Benzodiazepines Scrn Negative 09/28/21 14:20 Urine Cocaine Screen Negative 09/28/21 14:20 U Marijuana (THC) Screen Positive 09/28/21 14:20 Drugs of Abuse Note Disclamer 09/28/21 14:20 Active Medications - Current Medications Current Medications: Generic Name Dose Route Start Last Admin Trade Name Freq PRN Reason Stop Dose Admin Acetaminophen 650 mg 09/28/21 20:48 09/29/21 13:53 Acetaminophen 325 Mg Tab PO 650 mg Q4H PRN Administration Pain MILD(1-3)/Fever >100.5/MEEK Heparin Sodium (Porcine) 5,000 unit 09/28/21 22:00 09/29/21 13:51 Heparin 5,000 Unit/1 Ml Vial SUB-Q 5,000 unit Q12HR JONATAN Administration Hydralazine HCl 10 mg 09/29/21 06:17 Hydralazine 20 Mg/1 Ml Inj IV Q3H PRN Blood Pressure Insulin Human Lispro 0 unit 09/29/21 07:30 09/29/21 18:30 Insulin Lispro 100 Unit/Ml SUB-Q Not Given [facility]CHS [facility] Protocol Ondansetron HCl 4 mg 09/28/21 20:48 Ondansetron 4 Mg/2 Ml Inj IV Q8H PRN Nausea And Vomiting Sodium Chloride 10 ml 09/28/21 22:00 09/29/21 13:51 Sodium Chloride 0.9% 10 Ml Flush Syringe IV 10 ml BID JONATAN Administration Sodium Chloride 10 ml 09/28/21 20:48 Sodium Chloride 0.9% 10 Ml Flush Syringe IV PRN PRN LINE FLUSH Valsartan 160 mg 09/28/21 21:00 09/29/21 13:51 Valsartan 160mg Tab PO 160 mg Q12HR JONATAN Administration
[2021-09-29] MEDS ORDERED: LORazepam 2 MG/ML VIAL IV PRN (20:34)
[2021-09-30] MEDS: INSULIN LISPRO 100 UNIT/ML SUB-Q SCH ×3 (08:29→17:38)
--- NOTE | 2021-09-30 10:39 | XRay Report ---
CHEST 2 VIEWS INDICATION / CLINICAL INFORMATION: Fall, left chest pain. COMPARISON: 02/09/2009 FINDINGS: SUPPORT DEVICES: None. HEART / MEDIASTINUM: No significant abnormality. LUNGS / PLEURA: No significant pulmonary or pleural abnormality. No pneumothorax. ADDITIONAL FINDINGS: No significant additional findings. IMPRESSION: 1. No acute findings. Signer Name: Keith Galeana DO Signed: 09/30/2021 10:35 AM Workstation Name: [id number]
--- NOTE | 2021-09-30 10:59 | Magnetic Resonance Report ---
NONENHANCED MR SCAN OF THE BRAIN: INDICATION / CLINICAL INFORMATION: Stroke. TECHNIQUE: Multiplanar, multisequence MR images of the brain obtained. COMPARISON: CT scan of the head from 09/28/2021 FINDINGS: BRAIN / INTRACRANIAL CONTENTS: No acute ischemia, acute hemorrhage, mass effect, midline shift, or hy drocephalus. No chronic infarct or atrophy. No significant white matter abnormality. CRANIOCERVICAL JUNCTION: No significant abnormality. VASCULAR FLOW-VOIDS: No significant abnormality. ORBITS: No significant abnormality of visualized orbits. SINUSES / MASTOIDS: No significant abnormality of visualized sinuses and mastoid air cells. ADDITIONAL FINDINGS: None. IMPRESSION: No intracerebral hemorrhage or acute/subacute infarction No acute parenchymal lesion in the brain Signer Name: Melina Harmon MD Signed: 09/30/2021 10:55 AM Workstation Name: [id number]
[2021-09-30] MEDS ORDERED: methylPREDNISolone Sod Succinate 125 MG/2 ML INJ IV SCH (11:00)
[2021-09-30] MEDS: HEPARIN 5,000 UNIT/1 ML VIAL SUB-Q SCH (12:18)
[2021-09-30] MEDS: VALSARTAN 160MG TAB PO SCH (12:18)
[2021-09-30] MEDS: BUDESONIDE 0.5 MG/2 ML NEBU IH SCH ×2 (14:17→20:29)
[2021-09-30] MEDS: IPRATROPIUM/ALBUTEROL SULFATE 3 ML AMPUL.NEB IH SCH ×2 (14:17→20:30)
[2021-09-30] MEDS ORDERED: methylPREDNISolone Sod Succinate 40 MG/1 ML INJ IV SCH (15:00)
[2021-09-30 16:43] VITALS: BP 159/89
[2021-09-30] MEDS ORDERED: POTASSIUM CHLORIDE ER 20 MEQ TAB PO ONE (18:18)
--- NOTE | 2021-09-30 18:20 | Discharge Summary ---
Providers - Providers Date of Admission: 09/28/21 20:48 Attending physician: PHIL BOYCE MD 09/28/21 20:53 Consult to Physician [CONS] Routine Comment: Consulting Provider: MANFRED ORTIZ Physician Instructions: Reason For Exam: Acute encephalopathy Primary care physician: GLORIA SMITH Hospitalization Condition: Stable Hospital course: Syncope and fall in parking lot, likely vasovagal and extreme exhaustion Mild/borderline hypokalemia Hypertension not after controlled Mild bronchial asthma exacerbation Obesity Discharge instructions given to patient Lisinopril dose increased to 40 mg daily and prescription sent to pharmacy New BP pill, amlodipine prescribed New asthma pain, montelukast prescribed Prednisone taper pack prescribed. Have your blood pressure well controlled See your family doctor for follow-up in a week Disposition: HOME / SELF CARE / HOMELESS Final Discharge Diagnosis (Prints w/discharge instructions): Syncope and fall in parking lot, likely vasovagal and extreme exhaustion. Mild/borderline hypokalemia. Hypertension not after controlled. Mild bronchial asthma exacerbation. Obesity Time spent for discharge: 35 minutes Exam - Constitutional Vitals: Temp Pulse Resp BP Pulse Ox 97.4 F L 93 H 18 159/89 97 09/30/21 16:04 09/30/21 16:04 09/30/21 16:04 09/30/21 16:04 09/30/21 16:04 Plan Additional Instructions: Lisinopril dose increased to 40 mg daily and prescription sent to pharmacy. New BP pill, amlodipine prescribed. New asthma pain, montelukast prescribed. Prednisone taper pack prescribed. Have your blood pressure well controlled. See your family doctor for follow-up in a week Follow up with: GLORIA SMITH MD [Primary Care Provider] - 7 Days Prescriptions: Montelukast [Singulair] 10 mg PO QHS #30 tablet amLODIPine 5 mg PO DAILY #30 tab Prednisone [predniSONE 5 mg (6-Day Pack, 21 Tabs)] 5 mg PO .TAPER #1 pack lisinopriL [Zestril TAB] 40 mg PO QDAY #30 tablet
[2021-09-30] MEDS ORDERED: MONTELUKAST 10 MG TAB PO SCH (22:00)
--- NOTE | 2021-10-02 06:58 | Vascular Lab Report ---
"DUPLEX DOPPLER ULTRASOUND CAROTID, BILATERAL INDICATION: Syncope. COMPARISON: None available. FINDINGS: RIGHT CAROTID: No significant atherosclerotic plaque. CCA velocity: 114 cm/sec. ICA peak systolic velocity: 89 cm/sec. ICA/CCA PSV Ratio: Less than 1. Right Vertebral Artery: Antegrade flow. LEFT CAROTID: No significant atherosclerotic plaque. CCA velocity: 147 cm/sec. ICA peak systolic velocity: 67 cm/sec. ICA/CCA PSV Ratio: Less than 1. Left Vertebral Artery: Antegrade flow. IMPRESSION: 1. Right Internal Carotid Artery: Normal. 2. Left Internal Carotid Artery: Normal. Velocity criteria are extrapolated from diameter data as defined by the Society of Radiologists in Ul trasound Consensus Conference, Radiology 2003; 229;340-346. Degree of || ICA PSV || Plaque || ICA/CCA Stenosis (%) || (cm/sec) || estimate (%) || PSV Ratio - Normal...............<125..............None.................<2.0 - <50....................<125..............<50....................<2.0 - 50-69................125-230.........>50....................2.0-4.0 - >70 but <100....>230..............>50....................>4.0 - Near...................High, low, .....visible................variable occlusion or none - Total...................None.............visible;................N/A occlusion no lumen Signer Name: Janak Valdovinos MD Signed: 10/02/2021 6:53 AM Workstation Name: [email or web address]
== END 2021-09-30 21:00 | disposition home or self-care (01) ==
LOC: ED 16:39 → 4A 20:48 → INTOOBSV 20:48 → 4A 23:01
PROVIDERS: ADMIT Internal Medicine; ATTEND Internal Medicine
DX: G45.9 Transient cerebral ischemic attack, unspecified (principal); I67.4 Hypertensive encephalopathy; R55 Syncope and collapse; I10 Essential (primary) hypertension; E87.6 Hypokalemia; E11.9 Type 2 diabetes mellitus without complications; J45.909 Unspecified asthma, uncomplicated; R41.82 Altered mental status, unspecified; R29.700 NIHSS score 0; Z87.442 Personal history of urinary calculi; Z96.652 Presence of left artificial knee joint; Z79.899 Other long term (current) drug therapy; Z98.890 Other specified postprocedural states
CPT/HCPCS: 36415; 70450; 70551; 71046; 80048; 80053; 80307; 81001; 82550; 82553; 82962; 83036; 84484; 85025; 85379; 85610; 85670; 85730; 93005; 93010; 93880; 94640; 95819; 96372; 96374; 96375; 99291; C8929; G0378; J1644; J2060; J2930; 93306; Q9967; J1815